=== PATIENT | female | born 2000 | race Caucasian/White ===

== ENCOUNTER 2023-09-24 17:09 | Emergency (ER) | payer OTHER, SELFPAY ==
[2023-09-24 17:11] VITALS: BP 125/61; PULSE 62; RESP 18; TEMP 36.8; O2SAT 100; BMI 31.6
--- NOTE | 2023-09-24 17:26 | DI.CT.S_ITS ---
PROCEDURE: CT ABDOMEN PELVIS W CON INDICATIONS: rlq pain TECHNIQUE: After the administration of intravenous contrast, axial sections acquired from the lung bases to the pubic symphysis. Coronal and sagittal reformats were performed. For radiation dose reduction, the following was used: automated exposure control, adjustment of mA and/or kV according to patient size. COMPARISON: None. FINDINGS: Image quality: Diagnostic. Lower Chest: No significant findings. ABDOMEN: Liver: No solid mass. Liver measures 17.8 cm with mild steatosis. Gallbladder: No radiopaque gallstones or wall thickening. Biliary ducts: No biliary dilation. Pancreas: No ductal dilation. Spleen: Size is within normal limits. Adrenal Glands: No adrenal nodules. Kidneys and Ureters: No hydronephrosis. No solid mass. No complex renal cystic lesion which requires follow up. Stomach and Bowel: Normal colonic caliber, without significant wall thickening. Appendix is normal in size. Very minimal diverticula without inflammatory change. Peritoneum: Minimal dependent pelvic fluid. No free air. Ventral Wall: No significant ventral hernia. Abdominal Nodes: No retroperitoneal or mesenteric adenopathy by size criteria. Vessels: Aorta and inferior vena cava are normal in size. PELVIS: Pelvic Organs: Enhancing right ovarian focus measuring 1.9 cm. Bladder: No bladder wall thickening, accounting for underdistention. Pelvic Nodes: No enlarged lymph nodes. Miscellaneous: No inguinal hernias are seen. Bones: No aggressive osseous abnormality. IMPRESSION: Rim enhancing focus identified within the right adnexa suggestive involuting hemorrhagic cysts. Minimal dependent free fluid. Appendix is normal in size. Dictated by: Kely Goff M.D. on 09/24/2023 at 18:27 Approved by: Kely Goff M.D. on 09/24/2023 at 18:29
--- NOTE | 2023-09-24 17:26 | DI.US.S_ITS ---
PROCEDURE: US ABDOMEN LIMITED INDICATIONS: RIGHT UPPER QUADRANT PAIN TECHNIQUE: Real-time scanning was performed of the abdominal and retroperitoneal organs, with image documentation. COMPARISON: [facility], CT, CT ABDOMEN PELVIS W CON, 09/24/2023, 17:05. FINDINGS: Liver: Liver is enlarged with steatosis measuring 17.7 cm. Gallbladder: No gallstones. No wall thickening. No pericholecystic edema. Negative sonographic Wyatt's sign. Biliary ducts: Intrahepatic bile ducts are non-dilated. Extrahepatic bile duct caliber measures 2.5 mm. Normal is 6-7 mm or less in diameter, or 10 mm or less post-cholecystectomy. Pancreas: Visualized portions of the pancreas are sonographically normal. Miscellaneous: No free abdominal fluid. IMPRESSION: Unremarkable exam. Dictated by: Kely Goff M.D. on 09/24/2023 at 18:58 Approved by: Kely Goff M.D. on 09/24/2023 at 18:59
--- NOTE | 2023-09-24 17:37 | ED.ABDPAIN ---
HPI - Abdominal Pain <Radha France PA-C - Last Filed: 09/24/23 19:04> General Chief Complaint: Abdominal Pain Stated Complaint: wic sent/thinks apendicitis Time Seen by Provider: 09/24/23 17:20 Source: patient Mode of arrival: Ambulatory History of Present Illness HPI narrative: 23-year-old female with past medical history asthma presents to the ED with 4 days of abdominal pain. Patient states that the pain started in the epigastric region, migrated to the right lower quadrant. Patient states that pain is alleviated by holding her right abdomen when walking. Patient endorses nausea, vomiting, anorexia. Denies fever, chills, chest pain, shortness of breath, diarrhea, constipation. LMP was 9 days ago. Related Data Home Medications Medication Instructions Recorded Confirmed albuterol sulfate 90 mcg/actuation 1 inh inhalation ONCE 01/21/22 09/24/23 aerosol inhaler Allergies Allergy/AdvReac Type Severity Reaction Status Date / Time No Known Allergies Allergy Uncoded 09/24/23 16:37 Review of Systems <Radha France PA-C - Last Filed: 09/24/23 19:04> Constitutional Constitutional: Denies chills, Denies fatigue, Denies fever(s), Denies frequent falls, Denies lethargy and Denies weakness Eyes Eyes: Denies change in vision, Denies eye discharge, Denies irritation and Denies loss of vision ENT Ears, Nose, Mouth, and Throat: Denies change in voice, Denies dizziness, Denies neck pain, Denies sore throat and Denies throat swelling Cardiovascular Cardiovascular: Denies chest pain, Denies irregular heart rhythm, Denies lightheadedness, Denies palpitations, Denies dyspnea, Denies dyspnea on exertion and Denies orthopnea Respiratory Respiratory: Denies cough, Denies dyspnea, Denies dyspnea on exertion and Denies wheezing Gastrointestinal Gastrointestinal: Reports abdominal pain, Denies change in bowel habits, Denies diarrhea, Reports nausea and Reports vomiting Musculoskeletal Musculoskeletal: Denies neck pain and Denies numbness Integumentary/Breasts Skin/Breast: Denies pruritus, Denies erythema, Denies rash and Denies wounds Neurologic Neurologic: Denies behavioral changes, Denies confusion, Denies dizziness, Denies frequent falls, Denies loss of vision, Denies numbness and Denies weakness Psychiatric Psychiatric: Denies anxiety, Denies behavioral changes, Denies confusion, Denies depression, Denies homicidal ideation and Denies suicidal ideation Endocrine Endocrine: Denies fatigue, Denies flushing and Denies palpitations Hematologic/Lymphatic Hematologic/Lymphatic: Denies easy bruising Allergic/Immunologic Allergic/Immunologic: Denies urticaria, Denies throat swelling and Denies wheezing Patient History <RAVINDRA Lopez Last Filed: 09/24/23 19:04> Social History Smoking Status: Never smoker Smoking Status: Never smoker Substance Use Type: does not use Exam <RAVINDRA Lopez Last Filed: 09/24/23 19:04> Narrative Exam Narrative: Const General:?cooperative, healthy appearing and comfortable [facility] Head:?normal to inspection Ears:?hearing grossly normal bilaterally Nose:?external nose normal Face and sinus:?normal facial exam and sinuses nontender Mouth:?oral mucosae normal Throat:?posterior oropharynx normal Eyes General:?appearance normal, both eyes and all related structures Neck Neck:?normal visual inspection and no lymphadenopathy noted Resp Effort & Inspection:?normal respiratory effort Auscultation:?clear to auscultation bilaterally Cardio Rate:?regular rate Rhythm:?regular rhythm GI Abdomen is soft, nondistended. Abdomen is tender to palpation in the right upper quadrant and right lower quadrant. Neuro General:?patient alert, patient awake and patient oriented x3 Initial Vital Signs Initial Vital Signs: Vital Signs Temperature 98.3 F 09/24/23 17:11 Pulse Rate 62 09/24/23 17:11 Respiratory Rate 18 09/24/23 17:11 Blood Pressure 125/61 09/24/23 17:11 Pulse Oximetry 100 09/24/23 17:11 Oxygen Delivery Method Room Air 09/24/23 17:11 <Sylwia Ospina DO - Last Filed: 09/25/23 03:10> Initial Vital Signs Initial Vital Signs: Vital Signs Temperature 98.3 F 09/24/23 17:11 Pulse Rate 62 09/24/23 17:11 Respiratory Rate 18 09/24/23 17:11 Blood Pressure 125/61 09/24/23 17:11 Pulse Oximetry 100 09/24/23 17:11 Oxygen Delivery Method Room Air 09/24/23 17:11 Course <RAVINDRA Lopez Last Filed: 09/24/23 19:04> Orders Ordered: ED Orders 09/24/23 19:00 US pelvic complete Stat Vital Signs Vital signs: Vital Signs - 8 hr 09/24/23 22:08 Temperature 98.6 F Pulse Rate 65 Respiratory Rate 16 Blood Pressure 117/57 L Pulse Oximetry 96 Oxygen Delivery Method Room Air <Sylwia Ospina DO - Last Filed: 09/25/23 03:10> Orders Ordered: ED Orders 09/24/23 19:00 US pelvic complete Stat Vital Signs Vital signs: Vital Signs - 8 hr 09/24/23 22:08 Temperature 98.6 F Pulse Rate 65 Respiratory Rate 16 Blood Pressure 117/57 L Pulse Oximetry 96 Oxygen Delivery Method Room Air MDM - Abdominal Pain <Radha France PA-C - Last Filed: 09/24/23 19:04> Lab Data 09/24/23 17:45 09/24/23 17:45 Labs: Lab Results 09/24/23 Range/Units 17:45 WBC 4.3 L (4.5-11.0) X10^3/uL RBC 4.83 (4.0-5.2) X10^6/uL Hgb 13.6 (12.0-16.0) g/dL Hct 40.5 (36-46) % MCV 83.8 (80-100) fL MCH 28.1 (26-34) PG MCHC 33.5 (30-36) % RDW 13.8 (11.6-14.8) % Plt Count 238 (150-400) X10^3/uL Neut % (Auto) 56.5 (50-75) % Lymph % (Auto) 31.9 (25-40) % [place] % (Auto) 7.4 (3-14) % Eos % (Auto) 3.8 (2-4) % Baso % (Auto) 0.4 (0-2) % Neut # (Auto) 2400 (5647-4975) /uL Lymph # (Auto) 1400 (7189-7999) /uL Mccormick # (Auto) 300 (0-900) /uL Eos # (Auto) 200 (0-450) /uL Baso # (Auto) 0 (0-100) /uL PT 12.4 (9.4-12.5) SECONDS INR 1.1 (0.9-1.3) APTT 34 (25.1-36.5) SECONDS Sodium 139 (137-145) mmol/L Potassium 3.5 (3.4-5.1) mmol/L Chloride 107 (98-107) mmol/L Carbon Dioxide 26 (22-32) mmol/L BUN 7 (7-17) mg/dL Creatinine 0.59 (0.52-1.04) mg/dL Estimated GFR > 60 (>60) mL/min BUN/Creatinine Ratio 11.9 (6-22) Glucose 93 (70-100) mg/dL Calcium 9.5 (8.4-10.2) mg/dL Total Bilirubin 0.5 (0.2-1.3) mg/dL AST 25 (14-36) IU/L ALT 13 (<35) IU/L Alkaline Phosphatase 48 (38-126) U/L Total Protein 7.7 (6.3-8.2) g/dL Albumin 4.7 (3.5-5.0) g/dL Globulin 3.0 (1.7-4.1) g/dL Albumin/Globulin Ratio 1.6 (1.0-2.8) Lipase 48 (23-300) U/L Point of care testing: Point of Care Testing Test Results Negative Urine Dip Bedside Urine Glucose Negative Bedside Urine Bilirubin - Negative Bedside Urine Ketone - Negative Urine Specific [place] 1.005 Bedside Urine Occult Blood - Negative Bedside Urine pH 7.5 Bedside Urine Protein - Negative Bedside Urine Urobilinogen - Negative Bedside Urine Nitrite - Negative Bedside Urine Leukocytes - Negative Esterase MDM Narrative Medical decision making narrative: 23-year-old female with past medical history asthma presents to the ED with 4 days of abdominal pain. Concern for appendicitis versus cholecystitis versus cholelithiasis versus gastroenteritis versus other intra-abdominal pathology versus other. Will obtain labs, lipase, CT abdomen pelvis, ultrasound right upper quadrant. CT abdomen pelvis shows likely involuting hemorrhagic cyst with minimal free fluid. RUQ ultrasound without acute findings. Labs pending. Ordered pelvic ultrasound to further characterize the ovarian cyst. Patient has been signed out to Dr. Sylwia Ospina. <Sylwia Ospina, DO - Last Filed: 09/25/23 03:10> Lab Data Labs: Lab Results 09/24/23 Range/Units 17:45 WBC 4.3 L (4.5-11.0) X10^3/uL RBC 4.83 (4.0-5.2) X10^6/uL Hgb 13.6 (12.0-16.0) g/dL Hct 40.5 (36-46) % MCV 83.8 (80-100) fL MCH 28.1 (26-34) PG MCHC 33.5 (30-36) % RDW 13.8 (11.6-14.8) % Plt Count 238 (150-400) X10^3/uL Neut % (Auto) 56.5 (50-75) % Lymph % (Auto) 31.9 (25-40) % Mccormick % (Auto) 7.4 (3-14) % Eos % (Auto) 3.8 (2-4) % Baso % (Auto) 0.4 (0-2) % Neut # (Auto) 2400 (7519-1848) /uL Lymph # (Auto) 1400 (7246-9981) /uL Mccormick # (Auto) 300 (0-900) /uL Eos # (Auto) 200 (0-450) /uL Baso # (Auto) 0 (0-100) /uL PT 12.4 (9.4-12.5) SECONDS INR 1.1 (0.9-1.3) APTT 34 (25.1-36.5) SECONDS Sodium 139 (137-145) mmol/L Potassium 3.5 (3.4-5.1) mmol/L Chloride 107 (98-107) mmol/L Carbon Dioxide 26 (22-32) mmol/L BUN 7 (7-17) mg/dL Creatinine 0.59 (0.52-1.04) mg/dL Estimated GFR > 60 (>60) mL/min BUN/Creatinine Ratio 11.9 (6-22) Glucose 93 (70-100) mg/dL Calcium 9.5 (8.4-10.2) mg/dL Total Bilirubin 0.5 (0.2-1.3) mg/dL AST 25 (14-36) IU/L ALT 13 (<35) IU/L Alkaline Phosphatase 48 (38-126) U/L Total Protein 7.7 (6.3-8.2) g/dL Albumin 4.7 (3.5-5.0) g/dL Globulin 3.0 (1.7-4.1) g/dL Albumin/Globulin Ratio 1.6 (1.0-2.8) Lipase 48 (23-300) U/L Point of care testing: Point of Care Testing Test Results Negative Urine Dip Bedside Urine Glucose Negative Bedside Urine Bilirubin - Negative Bedside Urine Ketone - Negative Urine Specific [place] 1.005 Bedside Urine Occult Blood - Negative Bedside Urine pH 7.5 Bedside Urine Protein - Negative Bedside Urine Urobilinogen - Negative Bedside Urine Nitrite - Negative Bedside Urine Leukocytes - Negative Esterase Imaging Data CT scan - abdomen/pelvis: Radiologist's Impression: PROCEDURE: CT ABDOMEN PELVIS W CON INDICATIONS: rlq pain TECHNIQUE: After the administration of intravenous contrast, axial sections acquired from the lung bases to the pubic symphysis. Coronal and sagittal reformats were performed. For radiation dose reduction, the following was used: automated exposure control, adjustment of mA and/or kV according to patient size. COMPARISON: None. FINDINGS: Image quality: Diagnostic. Lower Chest: No significant findings. ABDOMEN: Liver: No solid mass. Liver measures 17.8 cm with mild steatosis. Gallbladder: No radiopaque gallstones or wall thickening. Biliary ducts: No biliary dilation. Pancreas: No ductal dilation. Spleen: Size is within normal limits. Adrenal Glands: No adrenal nodules. Kidneys and Ureters: No hydronephrosis. No solid mass. No complex renal cystic lesion which requires follow up. Stomach and Bowel: Normal colonic caliber, without significant wall thickening. Appendix is normal in size. Very minimal diverticula without inflammatory change. Peritoneum: Minimal dependent pelvic fluid. No free air. Ventral Wall: No significant ventral hernia. Abdominal Nodes: No retroperitoneal or mesenteric adenopathy by size criteria. Vessels: Aorta and inferior vena cava are normal in size. PELVIS: Pelvic Organs: Enhancing right ovarian focus measuring 1.9 cm. Bladder: No bladder wall thickening, accounting for underdistention. Pelvic Nodes: No enlarged lymph nodes. Miscellaneous: No inguinal hernias are seen. Bones: No aggressive osseous abnormality. IMPRESSION: Rim enhancing focus identified within the right adnexa suggestive involuting hemorrhagic cysts. Minimal dependent free fluid. Appendix is normal in size. Dictated by: Kely Goff M.D. on 09/24/2023 at 18:27 Approved by: Kely Goff M.D. on 09/24/2023 at 18:29 US - abdomen: Radiologist's Impression: PROCEDURE: US ABDOMEN LIMITED INDICATIONS: RIGHT UPPER QUADRANT PAIN TECHNIQUE: Real-time scanning was performed of the abdominal and retroperitoneal organs, with image documentation. COMPARISON: [facility], CT, CT ABDOMEN PELVIS W CON, 09/24/2023, 17:05. FINDINGS: Liver: Liver is enlarged with steatosis measuring 17.7 cm. Gallbladder: No gallstones. No wall thickening. No pericholecystic edema. Negative sonographic Wyatt's sign. Biliary ducts: Intrahepatic bile ducts are non-dilated. Extrahepatic bile duct caliber measures 2.5 mm. Normal is 6-7 mm or less in diameter, or 10 mm or less post-cholecystectomy. Pancreas: Visualized portions of the pancreas are sonographically normal. Miscellaneous: No free abdominal fluid. IMPRESSION: Unremarkable exam. Dictated by: Kely Goff M.D. on 09/24/2023 at 18:58 US - HEALTHCARE PROJECT MANAGER: Radiologist's Impression: PROCEDURE: US PELVIC COMPLETE INDICATIONS: FOLLOW UP CT TECHNIQUE: Real-time scanning was performed of the pelvic organs, with image documentation. Endovaginal scanning was not performed. COMPARISON: [facility], CT, CT ABDOMEN PELVIS W CON, 09/24/2023, 17:05. FINDINGS: Uterus: Uterus is anteverted and normal in size at 8.1 x 4.3 x 3.1 cm. The myometrium is homogeneous. The endometrium measures 9 mm combined thickness. Ovaries: The right ovary measures 3.8 x 1.7 x 1.7 cm, with a calculated ovarian volume of 5.7 cc. The left ovary measures 3.2 x 2.1 x 1.6 cm, with a calculated ovarian volume of 5.4 cc. The ovaries have a normal sonographic appearance. Less than 12 follicles can be seen in each ovary. No adnexal masses are seen. Other: No pathologic free abdominal or pelvic fluid. IMPRESSION: No significant sonographic abnormality. Physiologic-appearing right ovarian cyst seen on same day CT is not well visualized on transabdominal ultrasound. Approved by: Georges Rider M.D. on 09/24/2023 at 21:30 MDM Narrative Medical decision making narrative: 23-year-old female with past medical history asthma presents to the ED with 4 days of abdominal pain. Concern for appendicitis versus cholecystitis versus cholelithiasis versus gastroenteritis versus other intra-abdominal pathology versus other. Will obtain labs, lipase, CT abdomen pelvis, ultrasound right upper quadrant. CT abdomen pelvis shows likely involuting hemorrhagic cyst with minimal free fluid. RUQ ultrasound without acute findings. Labs pending. Ordered pelvic ultrasound to further characterize the ovarian cyst. Patient has been signed out to Dr. Sylwia Ospina. Dr. Ospina- Patient signed out to me I have seen evaluated patient myself. She initially started with some upper epigastric like pain right upper quadrant left. Thought she strained it from coughing however then started having some right lower quadrant pain. She had workup of right upper quadrant ultrasound CT abdomen and pelvis along with pelvic ultrasound. She has very small normal physiologic appearing right ovarian cyst without any evidence of appendicitis torsion. She has no significant vaginal discharge or concern for STD. At this time recommend supportive care only. Blood work has been reviewed without any clinical significant abnormalities Discharge Plan Departure Patient Disposition: Home Clinical Impression: Ovarian cyst Instructions: DI for Ovarian Cyst Activity Restrictions/Additional Instructions: *You have been diagnosed with ovarian cyst *What to do: At this time you have been normal ovarian cyst on the right side which may be causing some of your pain. I recommend outpatient ultrasound in about 6-8 weeks with your PCP *Continue to take medications as directed *Follow up with your primary care provider in 2-3 days or call [phone] *Return to ER if you should have increasing pain vomiting or any new, worsening or concerning symptoms Prescriptions: No Action albuterol sulfate 90 mcg/actuation HFA aerosol inhaler 1 inh inhalation ONCE Referrals: Amado Eugene DO [Primary Care Provider] - Stand Alone Forms: Patient Portal/API ED Sign-out <Sylwia Ospina DO - Last Filed: 09/25/23 03:10> Cosign ED Attending Cosisidoroature Attestation: I was available for consultation. I took over care see above
[2023-09-24 17:55] LABS: Add Manual Diff / Slide Review NO; Basophils Absolute Auto 0 /uL (0-100); Basophils Percent Auto 0.4 % (0-2); Eosinophils Absolute Auto 200 /uL (0-450); Eosinophils Percent Auto 3.8 % (2-4); Hematocrit 40.5 % (36-46); Hemoglobin 13.6 g/dL (12.0-16.0); Lymphocytes Absolute Auto 1400 /uL (1100-4500); Lymphocytes Percent Auto 31.9 % (25-40); Mean Corpuscular HGB Conc 33.5 % (30-36); Mean Corpuscular Hemoglobin 28.1 PG (26-34); Mean Corpuscular Volume 83.8 fL (80-100); Monocytes Absolute Auto 300 /uL (0-900); Monocytes Percent Auto 7.4 % (3-14); Neutrophils Absolute Auto 2400 /uL (1500-7000); Neutrophils Percent Auto 56.5 % (50-75); Platelet Count 238 X10^3/uL (150-400); Red Blood Cell Count 4.83 X10^6/uL (4.0-5.2); Red Cell Distribution Width 13.8 % (11.6-14.8); White Blood Cell Count 4.3 X10^3/uL (4.5-11.0)
[2023-09-24 18:01] LABS: INR 1.1 (0.9-1.3); Prothrombin Time 12.4 SECONDS (9.4-12.5)
[2023-09-24 18:04] LABS: PTT Partial Thromboplastin Tim 34 SECONDS (25.1-36.5)
[2023-09-24 18:11] LABS: Alanine Aminotransferase 13 IU/L (<35); Albumin 4.7 g/dL (3.5-5.0); Albumin Globulin Ratio 1.6 (1.0-2.8); Alkaline Phosphatase 48 U/L (38-126); Aspartate Aminotransferase 25 IU/L (14-36); BUN Creatinine Ratio 11.9 (6-22); Bilirubin Total 0.5 mg/dL (0.2-1.3); Blood Urea Nitrogen 7 mg/dL (7-17); Calcium 9.5 mg/dL (8.4-10.2); Carbon Dioxide 26 mmol/L (22-32); Chloride 107 mmol/L (98-107); Estimated Glomerular Filt Rate > 60 mL/min (>60); Glucose 93 mg/dL (70-100); HEMOLYSIS < 15 (0-50); Lipase 48 U/L (23-300); Potassium 3.5 mmol/L (3.4-5.1); Sodium 139 mmol/L (137-145); Total Protein 7.7 g/dL (6.3-8.2)
--- NOTE | 2023-09-24 19:00 | DI.US.S_ITS ---
PROCEDURE: US PELVIC COMPLETE INDICATIONS: FOLLOW UP CT TECHNIQUE: Real-time scanning was performed of the pelvic organs, with image documentation. Endovaginal scanning was not performed. COMPARISON: [facility], CT, CT ABDOMEN PELVIS W CON, 09/24/2023, 17:05. FINDINGS: Uterus: Uterus is anteverted and normal in size at 8.1 x 4.3 x 3.1 cm. The myometrium is homogeneous. The endometrium measures 9 mm combined thickness. Ovaries: The right ovary measures 3.8 x 1.7 x 1.7 cm, with a calculated ovarian volume of 5.7 cc. The left ovary measures 3.2 x 2.1 x 1.6 cm, with a calculated ovarian volume of 5.4 cc. The ovaries have a normal sonographic appearance. Less than 12 follicles can be seen in each ovary. No adnexal masses are seen. Other: No pathologic free abdominal or pelvic fluid. IMPRESSION: No significant sonographic abnormality. Physiologic-appearing right ovarian cyst seen on same day CT is not well visualized on transabdominal ultrasound. Approved by: Georges Rider M.D. on 09/24/2023 at 21:30
[2023-09-24 19:01] VITALS: PULSE 70; O2SAT 100
[2023-09-24 19:02] VITALS: BP 125/63; PULSE 59; O2SAT 100
--- NOTE | 2023-09-24 19:03 | PC.NURSE ---
Pt still denying any nausea, abd pain at 2/10, denies any further needs at this time.
[2023-09-24 22:08] VITALS: BP 117/57; PULSE 65; RESP 16; TEMP 37; O2SAT 96
== END 2023-09-24 22:09 | disposition home or self-care (01) ==
PROVIDERS: Student in an Organized Health Care Education/Training Program; Emergency Provider Emergency Medicine; PCP Pediatrics
DX: N83.201 Unspecified ovarian cyst, right side (principal)
CPT/HCPCS: 36415; 74177; 76705; 76856; 80053; 81003; 81025; 83690; 85025; 85610; 85730; 93975; 99283; 99284; Q9967